=== PATIENT | female | born 1975 | race Caucasian/White ===

== ENCOUNTER 2017-08-14 15:54 | Outpatient (CLI) | payer OTHER | END 2017-08-14 15:55 | disposition home or self-care (01) | LOC: BICMAMMO 15:54 | PROVIDERS: ATTEND Student in an Organized Health Care Education/Training Program | DX: Z12.31 Encounter for screening mammogram for malignant neoplasm of breast (principal) | CPT/HCPCS: 77063; 77067 ==

== ENCOUNTER 2017-09-25 14:28 | Outpatient (CLI) | payer OTHER | END 2017-09-25 14:29 | disposition home or self-care (01) | LOC: BICMAMMO 14:28 | PROVIDERS: ATTEND Student in an Organized Health Care Education/Training Program | DX: R92.2 Inconclusive mammogram (principal) | CPT/HCPCS: G0279 ==

== ENCOUNTER 2023-01-23 10:11 | Outpatient (CLI) | payer OTHER | END 2023-01-23 10:12 | disposition home or self-care (01) | LOC: BICMRI 10:11 | PROVIDERS: ATTEND Orthopaedic Surgery | DX: M76.72 Peroneal tendinitis, left leg (principal); R60.0 Localized edema; M67.874 Other specified disorders of tendon, left ankle and foot ==